=== PATIENT | female | born 1970 | race Caucasian/White ===

== ENCOUNTER 2016-10-11 21:31 | Emergency (ER) | payer OTHER ==
[2016-10-11 23:14] LABS: HEMOGLOBIN 12.9 gm/dl (12.3-15.3); RED BLOOD COUNT 4.31 M/UL (4.00-5.10); WHITE BLOOD COUNT 11.1 K/UL (4.5-11.0)
[2016-10-12 00:06] LABS: BUN/CREATININE RATIO 21 (0-10)
== END 2016-10-12 01:20 | disposition home or self-care (01) ==
LOC: ER1 21:31
PROVIDERS: Emergency Medicine
DX: E10.649 Type 1 diabetes mellitus with hypoglycemia without coma (principal)
CPT/HCPCS: 36415; 80048; 85025; 99284; J7030